=== PATIENT | female | born 1980 | race Caucasian/White ===

== ENCOUNTER 2018-08-05 00:38 | Emergency (ER) | payer OTHER, SELFPAY ==
[2018-08-05 00:45] VITALS: BP 128/67; PULSE 94; RESP 18; TEMP 36.9; O2SAT 95; BMI 55.3
[2018-08-05 01:04] LABS: Bacteria Urine None Seen; RBC Urine None Seen (0-5/HPF); WBC Urine None Seen (0-5/HPF)
[2018-08-05 01:06] LABS: Appearance Urine UA CLEAR; Bilirubin Urine UA NEGATIVE (NEGATIVE); Color Urine UA YELLOW; Glucose Urine UA NEGATIVE (Negative); Ketones Urine UA NEGATIVE (NEGATIVE); Leukocyte Esterase Urine UA NEGATIVE (NEGATIVE); Nitrite Urine UA NEGATIVE (Negative); Occult Blood Urine UA NEGATIVE (Negative); Protein Urine UA NEGATIVE (Negative); Specific Gravity Urine UA 1.025 (1.000-1.035); Urobilinogen Urine UA 0.2 E.U./dL (0.2)
--- NOTE | 2018-08-05 01:06 | ED.FEMALEGU ---
HPI - Female Genitourinary General Chief complaint: Urogenital-Female Stated complaint: hematuria/low back pain Time Seen by Provider: 08/05/18 01:00 Source: patient Mode of arrival: ambulatory Limitations: no limitations History of Present Illness HPI Narrative: Patient is a 38-year-old female here for evaluation of 1 episode of blood in her urine earlier this evening. She also had episode of vomiting. Today she finished a course Levaquin for a urinary tract infection that she states wants to her kidneys. No fevers. Never had any blood in her urine in the past. He is having some back pain. Has never had a kidney stone before. No diarrhea. Related Data Previous Rx's Medication Instructions Recorded phenazopyridine [Pyridium] 100 mg PO TID PRN 2 Days #6 tab 08/05/18 Allergies Allergy/AdvReac Type Severity Reaction Status Date / Time bacitracin Allergy Intermediate INFLAMES Unverified 06/16/17 12:37 [From NEOSPORIN WOUND ([id number])] neomycin Allergy Intermediate INFLAMES Unverified 06/16/17 12:37 [From NEOSPORIN WOUND ([id number])] polymyxin B Allergy Intermediate INFLAMES Unverified 06/16/17 12:37 [From NEOSPORIN WOUND ([id number])] latex [LATEX] Allergy Mild RASH Unverified 06/16/17 12:37 TOOTHPASTE Allergy Severe TONGUE, Uncoded 06/16/17 12:37 GUMS SWELLING, BLISTERS Review of Systems Constitutional Denies fever(s) Cardiovascular Denies chest pain and Denies dyspnea Respiratory Denies dyspnea Gastrointestinal Gastrointestinal: Denies abdominal pain, Denies change in stool character, Reports nausea and Reports vomiting Genitourinary Denies dysuria and Denies vaginal discharge Comments: Hematuria Musculoskeletal Reports back pain Integumentary/Breasts Denies rash Neurologic Denies behavioral changes Psychiatric Denies behavioral changes Hematologic/Lymphatic Denies easy bleeding and Denies easy bruising [facility] Medical History Pyelonephritis (Acute) Social History marital status: lives independently: Yes Social History marital status: lives independently: Yes Exam Initial Vital Signs Initial Vital Signs: Vital Signs Temperature 98.4 F 08/05/18 00:45 Pulse Rate 94 H 08/05/18 00:45 Respiratory Rate 18 08/05/18 00:45 Blood Pressure 128/67 08/05/18 00:45 Pulse Oximetry 95 08/05/18 00:45 Const General: cooperative, comfortable, well developed, well groomed and No acute distress Orientation: alert and awake HENMT Head: normal to inspection and normocephalic Resp Effort & Inspection: normal respiratory effort Auscultation: clear to auscultation bilaterally Cardio Rate: regular rate Rhythm: regular rhythm GI Inspection: non-distended Palpation: soft, No firm and No tender Back/Spine/Pelvis Back: CVA tenderness Skin Lesions: no lesions Rashes: no rashes Neuro General: alert and awake Cognition: normal cognition Speech: speech normal Extrem General: normal to inspection and capillary refill normal Course Orders Ordered: ED Orders 08/05/18 00:50 Urinalysis and Microscopic Stat Vital Signs - 8 hr 08/05/18 00:45 Temperature 98.4 F Pulse Rate 94 H Respiratory Rate 18 Blood Pressure 128/67 Pulse Oximetry 95 MDM - Female Genitourinary Lab Data Attestation: I reviewed the patient's lab results. Lab Results 08/05/18 Range/Units 00:50 Urine Color Yellow Urine Appearance Clear Urine pH 5.0 (4.5-8.0) Ur Specific [place] 1.025 (1.000-1.035) Urine Protein Negative (Negative) Urine Glucose (UA) Negative (Negative) g/dL Urine Ketones Negative (NEGATIVE) Urine Occult Blood Negative (Negative) Urine Nitrate Negative (Negative) Urine Bilirubin Negative (NEGATIVE) Urine Urobilinogen 0.2 (0.2) E.U./dL Ur Leukocyte Esterase Negative (NEGATIVE) Urine RBC None seen (0-5/HPF) Urine WBC None seen (0-5/HPF) Ur Squamous Epith Cells 0-1 /hpf (0-5/HPF) Urine Bacteria None seen (None) Ur Culture Indicated? Cult not indicated Micro UA Comment Microscopic normal MDM Narrative Medical decision making narrative: Patient's urine is clean today. She states that the blood did not come from the vagina it was in her urine. She has urinated once since the episode of hematuria and coming here to the emergency department. She is afebrile. I have low suspicion for continued UTI and pyelonephritis. She has never had a kidney stone before. Her physical exam is not consistent with kidney stones. Will hold on CT scan for now. Discussed all this with the patient. She states that peridium his helped her symptoms in the past will give her prescription for this. She was given return precautions. She expressed understanding and agreement with plan. Discharge Plan Departure Patient Disposition: Home Clinical Impression: Hematuria Qualifiers: Hematuria type: unspecified type Qualified Code(s): R31.9 - Hematuria, unspecified Instructions: Blood in Urine Activity Restrictions/Additional Instructions: Continue to increase your fluid intake. If the bleeding continues and you do need to talk with your primary doctor about referral to see Urology. There is no signs of continued infection today. Return to the emergency department for any new or worsening symptoms Prescriptions: New phenazopyridine [Pyridium] 100 mg tablet 100 mg PO TID PRN (Reason: pain) 2 Days Qty: 6 RF: 0
[2018-08-05 01:15] LABS: Culture Indicated Urine Cult Not Indicated; Squamous Epithelial Cell Urine 0-1 /HPF (0-5/HPF); Urine Comments Microscopic Normal
[2018-08-05 01:59] VITALS: BP 128/109; PULSE 86; RESP 20; TEMP 36.7; O2SAT 96
== END 2018-08-05 02:00 | disposition home or self-care (01) ==
PROVIDERS: Emergency Provider Emergency Medicine
DX: R31.9 Hematuria, unspecified (principal)
CPT/HCPCS: 81001; 99282; 99283

== ENCOUNTER 2019-01-06 11:15 | Emergency (ER) | payer OTHER, SELFPAY ==
[2019-01-06 11:15] VITALS: BP 123/93; PULSE 80; RESP 16; TEMP 37.2; O2SAT 98
--- NOTE | 2019-01-06 13:58 | ED.FEMALEGU ---
HPI - Female Genitourinary <CARMELO Torrez - Last Filed: 01/07/19 02:35> General Chief complaint: Urogenital-Female Stated complaint: thinks she had a kidney infection Time Seen by Provider: 01/06/19 12:08 Source: patient and family Mode of arrival: Family Vehicle Limitations: no limitations History of Present Illness HPI Narrative: This is a 39 year female, former smoker, who presents to ED with her spouse with chief complain of mild abdominal cramping with bilateral flank pain with nausea and bag symptoms of tired and feels like when she had bacterial vaginosis or yeast infection in the past. Patient has history of diabetes and states has frequent BV or yeast infection. Patient denies fever, vomiting. She reports chills and sweats. She reports white thin vaginal discharge and denies vaginal itching, bleeding or spotting. Patient denies any concerns for STIs. LMP was12/19/18. Related Data Home Medications Medication Instructions Recorded Confirmed calcium carb-D3-mag ox-zinc ox 1 tab PO DAILY 01/06/19 01/06/19 colchicine [Colcrys] 0.6 mg PO DAILY 01/06/19 01/06/19 duloxetine 60 mg PO DAILY 01/06/19 01/06/19 hydrochlorothiazide 12.5 mg PO QPM 01/06/19 01/06/19 hydroxyzine HCl 25 mg PO QPM 01/06/19 01/06/19 lisinopril 10 mg PO QPM 01/06/19 01/06/19 metformin 500 mg PO QPM 01/06/19 01/06/19 multivitamin 1 tab PO DAILY 01/06/19 01/06/19 oxycodone-acetaminophen 1 tab PO Q6H PRN 01/06/19 01/06/19 pregabalin [Lyrica] 75 mg PO TID 01/06/19 01/06/19 ropinirole 1 mg PO QID 01/06/19 01/06/19 tapentadol [Nucynta ER] 50 mg PO BID 01/06/19 01/06/19 tizanidine 4 mg PO QID 01/06/19 01/06/19 Previous Rx's Medication Instructions Recorded ondansetron 4 mg PO Q6-8H PRN #7 tab 11/01/19 Allergies Allergy/AdvReac Type Severity Reaction Status Date / Time bacitracin Allergy Intermediate INFLAMES Unverified 06/16/17 12:37 [From NEOSPORIN WOUND ([id number])] neomycin Allergy Intermediate INFLAMES Unverified 06/16/17 12:37 [From NEOSPORIN WOUND ([id number])] polymyxin B Allergy Intermediate INFLAMES Unverified 06/16/17 12:37 [From NEOSPORIN WOUND ([id number])] latex [LATEX] Allergy Mild RASH Unverified 06/16/17 12:37 TOOTHPASTE Allergy Severe TONGUE, Uncoded 06/16/17 12:37 GUMS SWELLING, BLISTERS Review of Systems <CARMELO Torrez - Last Filed: 01/07/19 02:35> Review of Systems Narrative: General: See HPI HEENT: Denies sinus pain, ear pain, sore throat, difficulty swallowing, dizziness. Respiratory: Denies dyspnea, cough, wheezing, hemoptysis, sputum. Cardiovascular: Denies chest pain, palpitations, orthopnea, edema. Gastrointestinal: See HPI : See HPI Musculoskeletal: Denies weakness, joint pain or bony pain. Skin: Denies rash, skin lesions, or other. Neurologic: Denies weakness, headache, numbness, change in speech, confusion, seizures, incoordination. Psychiatric: No concerning psychosocial issues. 12-point review of systems is negative except for those stated above. Patient History <CARMELO Torrez - Last Filed: 01/07/19 02:35> Medical History Pyelonephritis (Acute) Smoking Status: Former smoker alcohol intake frequency: 0-2 drinks per day Substance Use Type: does not use Exam <CARMELO Torrez - Last Filed: 01/07/19 02:35> Narrative Exam Narrative: General appearance: well developed, well nourished, in no acute distress. Head: normocephalic, atraumatic, no scalp lesions, non-tender. Eye: pupil equal, round. EOMI. Nose: nares patent. Oral: mucosa moist. Neck/Thyroid: neck supple, full range of motion, no visible masses. Skin: no suspicious rashes, lesions over visible areas. Warm and dry. Heart: no clubbing, no cyanosis, no edema. Lungs: Breathing even and unlabored. No stridor. No accessory muscles used. Chest: normal shape and expansion. Abdomen: obese, non-distended, soft, nondistended, very mild tenderness to suprapubic region, no rebound tenderness. Neurologic: alert and oriented. Cognitive exam, [employer] and PNS grossly intact on informal exam. Psych: good eye contact, normal affect. Initial Vital Signs Initial Vital Signs: Vital Signs Temperature 98.9 F 01/06/19 11:15 Pulse Rate 80 01/06/19 11:15 Respiratory Rate 16 01/06/19 11:15 Blood Pressure 123/93 H 01/06/19 11:15 Pulse Oximetry 98 01/06/19 11:15 General: No CVA tenderness External Female Exam: external appearance normal, no tenderness externally, no lesions and No urethral discharge Speculum Exam - Vagina: normal appearance of the vagina, normal vaginal discharge, not erythematous, No vaginal bleeding and nontender Speculum Exam - Cervix: normal appearance of the cervix, normal vervical discharge, no lesions and nontender Bimanual Exam- Vagina & Uterus: normal bimanual exam, No cervical tenderness, uterus non-tender and no cervical motion tenderness Bimanual Exam- Adnexa, other: adnexal mass and adnexae non-tender OB/External & Speculum: No vaginal bleeding <Akua Fleming DO - Last Filed: 01/07/19 07:09> Initial Vital Signs Initial Vital Signs: Vital Signs Temperature 98.9 F 01/06/19 11:15 Pulse Rate 80 01/06/19 11:15 Respiratory Rate 16 01/06/19 11:15 Blood Pressure 123/93 H 01/06/19 11:15 Pulse Oximetry 98 01/06/19 11:15 Scores <CARMELO Torrez - Last Filed: 01/07/19 02:35> GCS Saffell coma scale eye opening: Spontaneous Shy coma scale verbal response: Orientated Saffell coma scale motor response: Obey commands Shy coma scale total score: 15 Course <CARMELO Torrez - Last Filed: 01/07/19 02:35> Orders Ordered: ED Orders 01/06/19 12:50 Genital Culture Stat Wet Prep Tric BV Diana Stat Vital Signs Vital signs: Vital Signs - 8 hr 01/06/19 11:15 Temperature 98.9 F Pulse Rate 80 Respiratory Rate 16 Blood Pressure 123/93 H Pulse Oximetry 98 <Akua Fleming DO - Last Filed: 01/07/19 07:09> Orders Ordered: ED Orders 01/06/19 12:50 Genital Culture Stat Wet Prep Tric BV Diana Stat Vital Signs Vital signs: Vital Signs - 8 hr 01/06/19 11:15 Temperature 98.9 F Pulse Rate 80 Respiratory Rate 16 Blood Pressure 123/93 H Pulse Oximetry 98 MDM - Female Genitourinary <DORIAN TorrezP - Last Filed: 01/07/19 02:35> Differential Diagnosis Differential diagnosis: Likely urinary tract infection, bacterial vaginosis, trichomoniasis, cervicitis, ovarian cyst and other (Yeast infection) Medical Records Attestation: I reviewed the patient's medical records. Lab Data Attestation: I reviewed the patient's lab results. Labs: Point of Care Testing Test Results Negative Urine Dip Bedside Urine Glucose Negative Bedside Urine Bilirubin - Negative Bedside Urine Ketone - Negative Urine Specific [place] 1.015 Bedside Urine Occult Blood - Negative Bedside Urine pH 6.0 Bedside Urine Protein - Negative Bedside Urine Urobilinogen - Negative Bedside Urine Nitrite - Negative Bedside Urine Leukocytes - Negative Esterase MDM Narrative Medical decision making narrative: This is 39 year old female with back chief complain of low abdominal pain with back pain. Patient is concerned if she had another episode of vaginal infection which she had frequently in the past and she contributes to history of diabetes. The urine test was negative for urine leuko esterase and nitrite. Urine HCG was negative. Pelvic exam was negative for CMT, with normal vaginal discharge. There was no adnexal mass or enlarged uterus palpated. Abdominal physical exam was benign. Wet prep test was normal and genital culture is pending at this time. Findings were discussed with patient and spouse at the bedside. Patient advised to take [id number] Tylenol and or Motrin as needed for discomfort. Patient has a follow-up appointment this coming week with her PCP at [facility] and advised to keep that appointment. Return precautions were discussed with the patient and patient verbalized understanding and agrees with treatment plan. <Akua Fleming DO - Last Filed: 01/07/19 07:09> Lab Data Labs: Point of Care Testing Test Results Negative Urine Dip Bedside Urine Glucose Negative Bedside Urine Bilirubin - Negative Bedside Urine Ketone - Negative Urine Specific [place] 1.015 Bedside Urine Occult Blood - Negative Bedside Urine pH 6.0 Bedside Urine Protein - Negative Bedside Urine Urobilinogen - Negative Bedside Urine Nitrite - Negative Bedside Urine Leukocytes - Negative Esterase Discharge Plan Departure Patient Disposition: Home Clinical Impression: Lower abdominal pain Discharge Date/Time: 01/06/19 15:03 Instructions: DI for Abdominal Pain-Adult Activity Restrictions/Additional Instructions: You have been diagnosed with [low abdominal pain. The urine test does not indicate infection. Vaginal cultures are negative for infections for BV, yeast and etc. ]. What to do: *Take your medications as directed. Please take [id number] Tylenol and or Motrin as needed for discomfort. Zofran has been ordered for nausea as needed if you have recurring nausea. The vital signs showing no elevated heart rates or temperature at this time. *Follow up with your primary care provider in 2-3 days, call for an appointment. Let them know you were seen in the ED and that we asked you to be seen in follow up. *Return to ED if you have any new, worsening, or concerning symptoms, such as [fever, worsening nausea or vomiting, blood in her emesis or stool, chest pain, breathing difficulty, or any acute concerns]. Prescriptions: New ondansetron 4 mg tablet,disintegrating 4 mg PO Q6-8H PRN (Reason: nausea and vomiting) Qty: 7 RF: 0 No Action ropinirole 1 mg tablet 1 mg PO QID RF: 0 tizanidine 4 mg tablet 4 mg PO QID RF: 0 lisinopril 10 mg tablet 10 mg PO QPM RF: 0 hydroxyzine HCl 25 mg tablet 25 mg PO QPM RF: 0 oxycodone-acetaminophen 7.5-325 mg tablet 1 tab PO Q6H PRN (Reason: pain) RF: 0 colchicine [Colcrys] 0.6 mg tablet 0.6 mg PO DAILY RF: 0 metformin 500 mg tablet extended release 24 hr 500 mg PO QPM RF: 0 duloxetine 60 mg capsule,delayed release(DR/EC) 60 mg PO DAILY RF: 0 pregabalin [Lyrica] 75 mg capsule 75 mg PO TID RF: 0 hydrochlorothiazide 12.5 mg tablet 12.5 mg PO QPM RF: 0 Nucynta ER 50 mg tablet extended release 12 hr 50 mg PO BID RF: 0 multivitamin Tablet 1 tab PO DAILY RF: 0 calcium carb-D3-mag ox-zinc ox 333 mg-133 unit -133 mg-5 mg Tablet 1 tab PO DAILY RF: 0 Referrals: [facility] [Outside]
[2019-01-06 14:30] VITALS: BP 119/76; PULSE 73; RESP 18; O2SAT 99
== END 2019-01-06 15:03 | disposition home or self-care (01) ==
PROVIDERS: Emergency Provider Nurse Practitioner Family
DX: R10.30 Lower abdominal pain, unspecified (principal); E11.9 Type 2 diabetes mellitus without complications; I10 Essential (primary) hypertension
CPT/HCPCS: 81003; 81025; 87070; 87077; 87147; 87205; 87210; 99282

== ENCOUNTER 2019-02-15 06:58 | Emergency (ER) | payer OTHER, SELFPAY ==
[2019-02-15 07:00] VITALS: BP 145/93; PULSE 92; RESP 22; TEMP 36.7; O2SAT 97
[2019-02-15 07:30] VITALS: BP 103/71; PULSE 88; RESP 14; O2SAT 93
[2019-02-15 07:42] LABS: Add Manual Diff / Slide Review NO; Basophils Absolute Auto 0 /uL (0-100); Basophils Percent Auto 0.6 % (0-2); Eosinophils Absolute Auto 200 /uL (0-450); Eosinophils Percent Auto 2.2 % (2-4); Hematocrit 40.6 % (36-46); Hemoglobin 13.9 g/dL (12.0-16.0); Lymphocytes Absolute Auto 2700 /uL (1100-4500); Lymphocytes Percent Auto 36.1 % (25-40); Mean Corpuscular HGB Conc 34.1 % (30-36); Mean Corpuscular Hemoglobin 31.2 PG (26-34); Mean Corpuscular Volume 91.4 fL (80-100); Monocytes Absolute Auto 500 /uL (0-900); Monocytes Percent Auto 6.6 % (3-14); Neutrophils Absolute Auto 4100 /uL (1500-7000); Neutrophils Percent Auto 54.5 % (50-75); Platelet Count 319 X10^3/uL (150-400); Red Blood Cell Count 4.44 X10^6/uL (4.0-5.2); Red Cell Distribution Width 13.5 % (11.6-14.8); White Blood Cell Count 7.4 X10^3/uL (4.5-11.0)
[2019-02-15 07:43] LABS: Blood Urea Nitrogen 14 mg/dL (7-17); Calcium 9.5 mg/dL (8.4-10.2); Carbon Dioxide 27 mmol/L (22-32); Chloride 97 mmol/L (98-107); Estimated Glomerular Filt Rate > 60.0 mL/min (>60); Glucose 155 mg/dL (70-100); HEMOLYSIS 15 (0-50); Potassium 3.2 mmol/L (3.4-5.1); Sodium 137 mmol/L (137-145)
--- NOTE | 2019-02-15 07:51 | PC.NURSE ---
Unable to obtain IV at this time. Labs sent. Dr. Fleming aware.
[2019-02-15 07:55] LABS: Troponin I < 0.012 ng/mL (0.01-0.034)
--- NOTE | 2019-02-15 08:42 | ED_ITS ---
HPI - Arrhythmia/Palpitations General Chief Complaint: Arrhythmia/Palpitations Stated Complaint: heart stops/races passed out 2 days ago Time Seen by Provider: 02/15/19 07:02 Source: patient Mode of arrival: Ambulatory Limitations: no limitations History of Present Illness HPI narrative: This is a 39-year-old female comes to the emergency department with complaint of palpitations and feeling like her heart sometimes going and then skipping a few beats. Patient states she has really been noticing over the last 3 or 4 days although she has noticed in the past. She states nothing seems to exacerbate it or make it better. Last night she was up all night painting. She states that she has had 3 episodes where she passed out 1 was catch, was getting ready in the morning and 1 was in her bathroom. Patient states that they were very short episodes. She did hit her chest on a table for 1 and has a bruise on her right breast. Patient states that she takes multiple medications for diabetes, fibromyalgia, peripheral neuropathy, depression and arthritis. Does appear she takes medications for lisinopril and she has been told that her potassium is low and she takes supplementation. Patient been told to get a Holter in the past but has not done it. She denies any chest pain with these episodes, she denies any shortness of breath. She multiple nauseated. She denies any vomiting. She denies any frequency, dysuria urgency. No issues with bowel movements. No swelling in her lower extremities. she has had a tendon repair in her hand. She does not smoke tobacco, rare alcohol occasional CBD. Related Data Home Medications Medication Instructions Recorded Confirmed calcium carb-D3-mag ox-zinc ox 1 tab PO DAILY 01/06/19 01/06/19 colchicine [Colcrys] 0.6 mg PO DAILY 01/06/19 01/06/19 duloxetine 60 mg PO DAILY 01/06/19 01/06/19 hydrochlorothiazide 12.5 mg PO QPM 01/06/19 01/06/19 hydroxyzine HCl 25 mg PO QPM 01/06/19 01/06/19 lisinopril 10 mg PO QPM 01/06/19 01/06/19 metformin 500 mg PO QPM 01/06/19 01/06/19 multivitamin 1 tab PO DAILY 01/06/19 01/06/19 oxycodone-acetaminophen 1 tab PO Q6H PRN 01/06/19 01/06/19 pregabalin [Lyrica] 75 mg PO TID 01/06/19 01/06/19 ropinirole 1 mg PO QID 01/06/19 01/06/19 tapentadol [Nucynta ER] 50 mg PO BID 01/06/19 01/06/19 tizanidine 4 mg PO QID 01/06/19 01/06/19 Previous Rx's Medication Instructions Recorded ondansetron 4 mg PO Q6-8H PRN #7 tab 01/06/19 Allergies Allergy/AdvReac Type Severity Reaction Status Date / Time bacitracin Allergy Intermediate INFLAMES Unverified 02/15/19 07:14 [From NEOSPORIN WOUND ([id number])] neomycin Allergy Intermediate INFLAMES Unverified 02/15/19 07:14 [From NEOSPORIN WOUND ([id number])] polymyxin B Allergy Intermediate INFLAMES Unverified 02/15/19 07:14 [From NEOSPORIN WOUND ([id number])] latex [LATEX] Allergy Mild RASH Unverified 02/15/19 07:14 Review of Systems Review of Systems ROS Unobtainable: All systems reviewed & are unremarkable except as noted in HPI and below Patient History Medical History Pyelonephritis (Acute) Social History marital status: lives independently: Yes Smoking Status: Former smoker Smoking Status: Former smoker alcohol intake frequency: 0-2 drinks per day Substance Use Type: does not use Exam Narrative Exam Narrative: GENERAL: Alert and oriented x three, obese female in no acute distress. HEENT: Head normocephalic, atraumatic, EOMI, pupils reactive, face symmetric, moist mucous membranes NECK: Supple, full range of motion CARDIOVASCULAR: Regular rate and rhythm without murmurs, rubs or gallops. Jamee ent has a 3 cm area of ecchymosis with no hematoma palpated of the right breast at the 3 o'clock position. RESPIRATORY: Breath sounds equal bilaterally, no wheezes rales or rhonchi. ABDOMEN: Soft, nontender. Normoactive bowel sounds all 4 quadrants. No guarding or rebound, rigidity, no mass : No CVA tenderness EXTREMITIES: Normal range of motion, no clubbing or edema. Neurovascularly intact NEUROLOGICAL: Cranial nerves II through XII grossly intact. Moving all extremities SKIN: Warm, dry, no petechiae, no rashes or lesions. Initial Vital Signs Initial Vital Signs: Vital Signs Temperature 98.1 F 02/15/19 07:00 Pulse Rate 92 H 02/15/19 07:00 Respiratory Rate 22 02/15/19 07:00 Blood Pressure 145/93 H 02/15/19 07:00 Pulse Oximetry 97 02/15/19 07:00 Scores PERC Score Age greater than or equal to 50 years: No Heart rate greater than or equal to 100 bpm: No Room Air O2 Sat less than 95%: No Unilateral leg swelling: No Recent trauma or surgery: No Hemoptysis: No Prior PE or DVT: No Hormone Use: No Total PERC Score: 0 Course Orders Ordered: Discontinued Medications Potassium Chloride (Potassium Chloride) 40 meq PO NOW ONE Stop: 02/15/19 08:51 Last Admin: 02/15/19 09:15 Dose: 40 meq Documented by: VICTOR M Vital Signs Vital signs: Vital Signs - 8 hr 02/15/19 07:00 02/15/19 07:30 Temperature 98.1 F Pulse Rate 92 H 88 Respiratory Rate 22 14 Blood Pressure 145/93 H Blood Pressure [Left Arm] 103/71 Pulse Oximetry 97 93 MDM - Arrhythmia/Palpitations Lab Data Attestation: I reviewed the patient's lab results. Result diagrams: 02/15/19 07:25 02/15/19 07:25 Labs: Lab Results 02/15/19 02/15/19 02/15/19 Range/Units 07:25 07:25 07:25 WBC 7.4 (4.5-11.0) X10^3/uL RBC 4.44 (4.0-5.2) X10^6/uL Hgb 13.9 (12.0-16.0) g/dL Hct 40.6 (36-46) % MCV 91.4 (80-100) fL MCH 31.2 (26-34) PG MCHC 34.1 (30-36) % RDW 13.5 (11.6-14.8) % Plt Count 319 (150-400) X10^3/uL Neut % (Auto) 54.5 (50-75) % Lymph % (Auto) 36.1 (25-40) % Childress % (Auto) 6.6 (3-14) % Eos % (Auto) 2.2 (2-4) % Baso % (Auto) 0.6 (0-2) % Neut # (Auto) 4100 (9698-2313) /uL Lymph # (Auto) 2700 (8307-5885) /uL Childress # (Auto) 500 (0-900) /uL Eos # (Auto) 200 (0-450) /uL Baso # (Auto) 0 (0-100) /uL Sodium 137 (137-145) mmol/L Potassium 3.2 L (3.4-5.1) mmol/L Chloride 97 L (98-107) mmol/L Carbon Dioxide 27 (22-32) mmol/L BUN 14 (7-17) mg/dL Creatinine 0.70 (0.52-1.04) mg/dL Estimated GFR > 60.0 (>60) mL/min BUN/Creatinine Ratio 20.0 (6-22) Glucose 155 H (70-100) mg/dL Calcium 9.5 (8.4-10.2) mg/dL Troponin I < 0.012 (0.01-0.034) ng/mL TSH 1.54 (0.47-4.68) uIU/mL Point of Care Testing Glucose POC 161 Imaging Data Chest x-ray: My impression: nap Radiologist's impression: Maritza Phillips 39 F [address] [address] XRay Report Signed Patient: Maritza Phillips [facility]#: [id number] : 1980Acct:[id number] Age/Sex: 39 / FDate of Service: 02/15/19 Loc: ED Accession Number: [id number] Procedure: XR chest 1V Ordering Provider: Akua Fleming D.O. PROCEDURE: XR CHEST 1V INDICATIONS: palpitations, passed out 2 days ago TECHNIQUE: One view of the chest was acquired. COMPARISON: None. FINDINGS: Surgical changes and devices: None. Lungs and pleura: Lungs are clear. No pleural effusions or pneumothorax. Mediastinum: Mediastinal contours appear normal. Heart size is normal. Bones and chest wall: No suspicious bony lesions. Overlying soft tissues appear unremarkable. IMPRESSION: Negative chest. No acute cardiopulmonary process is evident. Dictated by: Tim Pereyra M.D. on 02/15/2019 at 8:12 Approved by: Tim Pereyra M.D. on 02/15/2019 at 8:13 ECG Data Attestation: I personally reviewed and interpreted this ECG as follows: Prior ECG tracings: not available for review Interpretation: Sinus rhythm rate 84 SC 194 QRS of 95 and QTC of 431. Q-wave in [address] elevation or depression. No priors available for review. MDM Narrative Medical decision making narrative: Discussed with patient complained palpitations she denies any symptoms here, she has had normal sinus rhythm with labs that show a mild hypokalemia. This could potentially cause some palpitation type symptoms although she has had what she describes 3 episodes of syncope over the last year. Patient and I discussed that she would benefit from a Holter monitor. She states she is prediabetic, she does take hypertensive medications likely for her diabetes and renal protection but this does cause hypokalemia. She does take supplementation. She will call and set up follow-up with her primary care. Discharge Plan Departure Patient Disposition: Home Clinical Impression: Syncope, Palpitations Discharge Date/Time: 02/15/19 09:39 Instructions: DI for Palpitations Activity Restrictions/Additional Instructions: Follow-up for primary care for recheck in the next 3-5 days. Discussed with your physician about getting a Holter monitor or ZIO patch You may continue home medications as prescribed. Return to the emergency department for fevers greater 100.4 F, recurrent symptoms, passing out, new chest pain, shortness of breath, persistent vomiting, abdominal pain, black or bloody stools, swelling in your extremities or other new or concerning symptoms. Prescriptions: No Action ropinirole 1 mg tablet 1 mg PO QID RF: 0 tizanidine 4 mg tablet 4 mg PO QID RF: 0 lisinopril 10 mg tablet 10 mg PO QPM RF: 0 hydroxyzine HCl 25 mg tablet 25 mg PO QPM RF: 0 oxycodone-acetaminophen 7.5-325 mg tablet 1 tab PO Q6H PRN (Reason: pain) RF: 0 colchicine [Colcrys] 0.6 mg tablet 0.6 mg PO DAILY RF: 0 metformin 500 mg tablet extended release 24 hr 500 mg PO QPM RF: 0 duloxetine 60 mg capsule,delayed release(DR/EC) 60 mg PO DAILY RF: 0 pregabalin [Lyrica] 75 mg capsule 75 mg PO TID RF: 0 hydrochlorothiazide 12.5 mg tablet 12.5 mg PO QPM RF: 0 Nucynta ER 50 mg tablet extended release 12 hr 50 mg PO BID RF: 0 multivitamin Tablet 1 tab PO DAILY RF: 0 calcium carb-D3-mag ox-zinc ox 333 mg-133 unit -133 mg-5 mg Tablet 1 tab PO DAILY RF: 0 ondansetron 4 mg tablet,disintegrating 4 mg PO Q6-8H PRN (Reason: nausea and vomiting) Qty: 7 RF: 0
[2019-02-15 08:43] LABS: Thyroid Stimulating Hormone 1.54 uIU/mL (0.47-4.68)
[2019-02-15] MEDS: POTASSIUM CHLORIDE 20 MEQ/15 ML UDC 40 MEQ PO (09:15)
[2019-02-15 09:31] VITALS: BP 121/79; PULSE 71; RESP 19; O2SAT 100
== END 2019-02-15 09:39 | disposition home or self-care (01) ==
PROVIDERS: Emergency Medicine; Emergency Provider Emergency Medicine
DX: R55 Syncope and collapse (principal); R00.2 Palpitations; E87.6 Hypokalemia
CPT/HCPCS: 36415; 71045; 80048; 82962; 84443; 84484; 85025; 93005; 93010; 99282; 99285

== ENCOUNTER 2019-03-31 12:52 | Emergency (ER) | payer OTHER, SELFPAY ==
[2019-03-31 12:57] VITALS: BP 136/93; PULSE 108; RESP 18; TEMP 36.3; O2SAT 97; BMI 54.0
--- NOTE | 2019-03-31 13:11 | DI.RAD.S_ITS ---
PROCEDURE: XR CHEST 2V INDICATIONS: shortness of breath TECHNIQUE: 2 views of the chest were acquired. COMPARISON: [facility], , XR CHEST 1V, 02/15/2019, 8:48. FINDINGS: Surgical changes and devices: None. Lungs and pleura: Lungs are clear. No pleural effusions or pneumothorax. Mediastinum: Mediastinal contours are normal. Heart size is normal. Bones and chest wall: No suspicious bony abnormalities. Age-appropriate bony degenerative changes are seen. Soft tissues appear unremarkable. IMPRESSION: No acute cardiopulmonary process is seen. Dictated by: Costa Lopez M.D. on 03/31/2019 at 13:15 Approved by: Costa Lopez M.D. on 03/31/2019 at 13:15
--- NOTE | 2019-03-31 13:40 | PC.NURSE ---
pt reports, seen her pcp yesterday, dx with pitting edema lower legs, today, states, its worst, its not pitting and my legs are more squeezy, I smell acidic when im sweaty, and im not voiding normally, but able to void today. wt 366 pounds, noted a wt lost 30# in 3 months. left foot with gout. 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 +chest preassure intermittent. denies nausea,vomiting,fever,coughing,diarrhea.
[2019-03-31 13:44] VITALS: BP 142/83; PULSE 90; RESP 20; O2SAT 100
[2019-03-31 13:52] LABS: Add Manual Diff / Slide Review NO; Basophils Absolute Auto 0 /uL (0-100); Basophils Percent Auto 0.3 % (0-2); Eosinophils Absolute Auto 0 /uL (0-450); Eosinophils Percent Auto 0.6 % (2-4); Hematocrit 40.5 % (36-46); Hemoglobin 14.2 g/dL (12.0-16.0); Lymphocytes Absolute Auto 1800 /uL (1100-4500); Lymphocytes Percent Auto 22.3 % (25-40); Mean Corpuscular Hemoglobin 31.8 PG (26-34); Monocytes Absolute Auto 500 /uL (0-900); Monocytes Percent Auto 6.3 % (3-14); Neutrophils Absolute Auto 5700 /uL (1500-7000); Neutrophils Percent Auto 70.5 % (50-75); Platelet Count 330 X10^3/uL (150-400); Red Blood Cell Count 4.45 X10^6/uL (4.0-5.2); Red Cell Distribution Width 13.2 % (11.6-14.8); White Blood Cell Count 8.1 X10^3/uL (4.5-11.0)
[2019-03-31 14:16] LABS: Lactate (Lactic Acid) 1.6 mmol/L (0.7-2.1)
[2019-03-31 14:17] LABS: Alanine Aminotransferase 44 IU/L (<35); Albumin Globulin Ratio 1.3 (1.0-2.8); Alkaline Phosphatase 56 U/L (38-126); Aspartate Aminotransferase 43 IU/L (14-36); BUN Creatinine Ratio 15.7 (6-22); Bilirubin Total 0.5 mg/dL (0.2-1.3); Blood Urea Nitrogen 11 mg/dL (7-17); Calcium 10.3 mg/dL (8.4-10.2); Carbon Dioxide 29 mmol/L (22-32); Chloride 98 mmol/L (98-107); Estimated Glomerular Filt Rate > 60.0 mL/min (>60); Glucose 131 mg/dL (70-100); HEMOLYSIS < 15 (0-50); Potassium 3.6 mmol/L (3.4-5.1); Sodium 137 mmol/L (137-145)
--- NOTE | 2019-03-31 14:23 | ED_ITS ---
HPI - Extremity Problem <CARMELO Torrez - Last Filed: 03/31/19 19:08> General Chief complaint: Extremity Problem,Nontraumatic Stated complaint: legs swelling Time Seen by Provider: 03/31/19 13:19 Source: patient Mode of arrival: Ambulatory Limitations: no limitations History of Present Illness HPI Narrative: This is a 39-year-old female, former smoker, who presents to ED with spouse with chief complain of bilateral leg swelling and discomfort from pitting edema to now squeeshy feeling and noticed decreased urine output since this morning. Patient states she has been hydrating well with water at least 4 large cups but has only voided once with not concentrated appearance at 11 a.m. this morning. She also states her sweats smells alike acidic. She reports intermittent chest pressure and feels like passing out for last a couple of weeks. She states has history of fibromyalgia, hypertensive, prediabetic, PCOS, anxiety, chronic back pain and takes multiple medications for these. Patient reports she had taken half tab of Percocet prior coming into ED and her pain has decreased to 3/10 from 09/14. Patient denies short of breath, fever, chills, coughing, nausea or vomiting, diarrhea. Patient does have chronic constipation which is normal for her due to her pain medications. Patient denies blood in her stool or urine, chronic kidney disease. Patient states she had a sepsis from kidney infection and was on 14 day course of oral antibiotic medication and treated as outpatient knee. Patient also reports unintentional weight loss of 30 lb during last 3-4 months. [place] has a scheduled cardiology appointment with Dr. Be for recent syncopal episode, chest pressure and dizziness. Related Data Home Medications Medication Instructions Recorded Confirmed calcium carb-D3-mag ox-zinc ox 1 tab PO DAILY 01/06/19 03/31/19 colchicine [Colcrys] 0.6 mg PO DAILY 01/06/19 03/31/19 duloxetine 60 mg PO DAILY 01/06/19 03/31/19 hydrochlorothiazide 12.5 mg PO QPM 01/06/19 03/31/19 hydroxyzine HCl 25 mg PO QPM 01/06/19 03/31/19 lisinopril 10 mg PO QPM 01/06/19 03/31/19 metformin 500 mg PO QPM 01/06/19 03/31/19 multivitamin 1 tab PO DAILY 01/06/19 03/31/19 oxycodone-acetaminophen 1 tab PO Q6H PRN 01/06/19 03/31/19 pregabalin [Lyrica] 75 mg PO TID 01/06/19 03/31/19 ropinirole 1 mg PO TID 01/06/19 03/31/19 tapentadol [Nucynta ER] 50 mg PO BID 01/06/19 03/31/19 tizanidine 4 mg PO QID 01/06/19 03/31/19 loratadine 10 mg PO DAILY 03/31/19 03/31/19 potassium chloride [Klor-Con 10] 10 meq PO BID 03/31/19 03/31/19 Previous Rx's Medication Instructions Recorded ondansetron 4 mg PO Q6-8H PRN #7 tab 01/06/19 cephalexin [Keflex] 500 mg PO BID 7 Days #14 cap 03/31/19 Allergies Allergy/AdvReac Type Severity Reaction Status Date / Time bacitracin Allergy Intermediate INFLAMES Verified 03/31/19 12:57 [From NEOSPORIN WOUND ([id number])] neomycin Allergy Intermediate INFLAMES Verified 03/31/19 12:57 [From NEOSPORIN WOUND ([id number])] polymyxin B Allergy Intermediate INFLAMES Verified 03/31/19 12:57 [From NEOSPORIN WOUND ([id number])] latex [LATEX] Allergy Mild RASH Verified 03/31/19 12:57 Review of Systems <CARMELO Torrez - Last Filed: 03/31/19 19:08> Review of Systems Narrative: General: Denies fever, chills, fatigue, malaise, sweats. HEENT: Denies sinus pain, ear pain, sore throat, difficulty swallowing, dizziness. Respiratory: Denies dyspnea, cough, wheezing, hemoptysis, sputum. Cardiovascular: Denies (+) occasional and intermittent chest pressure, palpitations, orthopnea, (+) edema to bilateral legs. Gastrointestinal: Denies nausea, vomiting, abdominal pain, diarrhea, (+) chronic constipation, melena. : Denies dysuria, frequency, incontinence, hematuria, urinary retention. Musculoskeletal: Denies weakness, joint pain or bony pain. Reports chronic back pain and muscle spasms in abdomen. Skin: Denies rash, skin lesions, or other. Neurologic: Denies weakness, headache, numbness, change in speech, confusion, seizures, incoordination. Psychiatric: No concerning psychosocial issues. 12-point review of systems is negative except for those stated above. Patient History <CARMELO Torrez - Last Filed: 03/31/19 19:08> Medical History Pyelonephritis (Acute) Social History marital status: lives independently: Yes Smoking Status: Former smoker Smoking Status: Former smoker alcohol intake frequency: holidays/special occasions only Substance Use Type: does not use and marijuana Exam <CARMELO Torrez - Last Filed: 03/31/19 19:08> Narrative Exam Narrative: GEN: Alert, oriented x 3, well appearing and nourished, and in no acute distress. Head: Normal cephalic, atraumatic. No scalp or temporal tenderness, palpable mass or rash. EYES: Pupils are equal, round, and reactive to light and accommodation. Extraocular muscles are intact bilaterally. There is no subconjunctival hemorrhage, exudate and sclera non-icteric. ENT: Bilateral auditory canals and tympanic membranes clear. Hearing grossly intact. Nose without bleeding, purulent discharge or deviation. Facial sinuses nontender to palpate. Mucous membrane moist, no mucosal lesion. Throat wi thout erythema, tonsillar hypertrophy or exudate. Uvula in midline, airway patent. Neck: Trachea in midline. No JVD, non-tender without lymphadenopathy. No masses or thyroid megaly. Supple, non-tender and no meningeal signs. CARDIAC: Normal regular rate and rhythm without murmurs, gallops, or rubs. No chest wall tenderness. No peripheral edema, cyanosis or pallor. Capillary refill is less than 2 seconds. RESPIRATORY: Lungs are clear to auscultate bilaterally. No cough, wheezes, rales, or rhonchi. No stridor, respiratory distress, increase work of breathing, or accessary muscle used. ABD: Abdomen soft, nontender and non-distended. No guarding or rebound tenderness to palpate. Bowel sounds are normal in all 4 quadrants. There is no palpable masses or organomegaly. EXT: Full painless ROM of all extremities with no loss of sensation, strength, effusion or edema. SKIN: Warm, dry, normal color for patient. No erythema, lesions or rash over visible areas. BACK: Nontender without deformity or crepitance. No flank tenderness. NEUROLOGICAL: Alert and oriented to place, time and person. Sensation and motor function intact bilaterally. No facial droops, dysphasia. PSYCHIATRIC: Good judgement and reason, without hallucinations, abnormal affect or abnormal behaviors during the examination. Patient is not suicidal. Initial Vital Signs Initial Vital Signs: Vital Signs Temperature 97.4 F L 03/31/19 12:57 Pulse Rate 108 H 03/31/19 12:57 Respiratory Rate 18 03/31/19 12:57 Blood Pressure 136/93 H 03/31/19 12:57 Pulse Oximetry 97 03/31/19 12:57 <Delmer Palmer MD - Last Filed: 04/03/19 20:55> Initial Vital Signs Initial Vital Signs: Vital Signs Temperature 97.4 F L 03/31/19 12:57 Pulse Rate 108 H 03/31/19 12:57 Respiratory Rate 18 03/31/19 12:57 Blood Pressure 136/93 H 03/31/19 12:57 Pulse Oximetry 97 03/31/19 12:57 Scores <Kian AmeCARMELO Davila - Last Filed: 03/31/19 19:08> GCS [place] coma scale eye opening: Spontaneous [place] coma scale verbal response: Orientated Shy coma scale motor response: Obey commands [place] coma scale total score: 15 NIH Stroke Scale Level of Conciousness: Alert, keenly responsive Ask month/age: Answers both questions correctly. Open/close eyes, close hand: Performs both tasks correctly Best gaze horizontal: Normal Visual aldana: No visual loss Facial palsy: Normal symetrical movement Left arm drift: No drift for full 10 sec Right arm drift: No drift for full 10 sec Left leg drift: No drift for full 10 sec Right leg drift: No drift for full 10 sec Limb ataxia: Absent Sensory on face/arms/legs: Normal, no sensory loss Best language: No aphasia, normal Dysarthria: Normal Extinction or inattention: No abnormality Total NIH Stroke scale score: 0 PERC Score Age greater than or equal to 50 years: No Heart rate greater than or equal to 100 bpm: Yes Room Air O2 Sat less than 95%: No Unilateral leg swelling: No Recent trauma or surgery: No Hemoptysis: No Prior PE or DVT: No Hormone Use: No Total PERC Score: 1 Course <Kian CARMELO Guzmán - Last Filed: 03/31/19 19:08> Course Course Narrative: 1700-Spouse of the patient informed that patient is confused. Patient was unable to remember her name, location, and their relation. NIHSS score 0 when the patient assessed by myself. CT head without contrast has been ordered added. Orders Ordered: Discontinued Medications Cephalexin HCl (Keflex) 500 mg PO NOW ONE Stop: 03/31/19 16:42 Last Admin: 03/31/19 17:25 Dose: 500 mg Documented by: DUC Vital Signs Vital signs: Vital Signs - 8 hr 03/31/19 12:57 03/31/19 13:44 03/31/19 16:39 Temperature 97.4 F L Pulse Rate 108 H 90 119 H Respiratory Rate 18 20 14 Blood Pressure 136/93 H Blood Pressure [Left Arm] 142/83 H 147/79 H Pulse Oximetry 97 100 97 03/31/19 17:00 03/31/19 17:47 Temperature Pulse Rate 113 H 91 H Respiratory Rate 17 18 Blood Pressure Blood Pressure [Left Arm] 138/80 114/70 Pulse Oximetry 97 97 <Delmer Palmer MD - Last Filed: 04/03/19 20:55> Orders Ordered: Discontinued Medications Cephalexin HCl (Keflex) 500 mg PO NOW ONE Stop: 03/31/19 16:42 Last Admin: 03/31/19 17:25 Dose: 500 mg Documented by: DUC Vital Signs Vital signs: Vital Signs - 8 hr 03/31/19 12:57 03/31/19 13:44 03/31/19 16:39 Temperature 97.4 F L Pulse Rate 108 H 90 119 H Respiratory Rate 18 20 14 Blood Pressure 136/93 H Blood Pressure [Left Arm] 142/83 H 147/79 H Pulse Oximetry 97 100 97 03/31/19 17:00 03/31/19 17:47 Temperature Pulse Rate 113 H 91 H Respiratory Rate 17 18 Blood Pressure Blood Pressure [Left Arm] 138/80 114/70 Pulse Oximetry 97 97 MDM - Extremity (Nontraumatic) <DORIAN TorrezP - Last Filed: 03/31/19 19:08> Differential Diagnosis Differential diagnosis: Likely cellulitis, lower extremity edema, deep vein thrombosis of lower extremity and other (acute kidney injury) Medical Records Attestation: I reviewed the patient's medical records. Lab Data Attestation: I reviewed the patient's lab results. Result diagrams: 03/31/19 13:43 03/31/19 13:43 Labs: Lab Results 03/31/19 03/31/19 03/31/19 Range/Units 13:43 13:43 13:43 WBC 8.1 (4.5-11.0) X10^3/uL RBC 4.45 (4.0-5.2) X10^6/uL Hgb 14.2 (12.0-16.0) g/dL Hct 40.5 (36-46) % MCV 91.0 (80-100) fL MCH 31.8 (26-34) PG MCHC 35.0 (30-36) % RDW 13.2 (11.6-14.8) % Plt Count 330 (150-400) X10^3/uL Neut % (Auto) 70.5 (50-75) % Lymph % (Auto) 22.3 L (25-40) % [place] % (Auto) 6.3 (3-14) % Eos % (Auto) 0.6 L (2-4) % Baso % (Auto) 0.3 (0-2) % Neut # (Auto) 5700 (9855-8998) /uL Lymph # (Auto) 1800 (2869-8919) /uL [place] # (Auto) 500 (0-900) /uL Eos # (Auto) 0 (0-450) /uL Baso # (Auto) 0 (0-100) /uL D-Dimer (<230) ng/mL Sodium 137 (137-145) mmol/L Potassium 3.6 (3.4-5.1) mmol/L Chloride 98 (98-107) mmol/L Carbon Dioxide 29 (22-32) mmol/L BUN 11 (7-17) mg/dL Creatinine 0.70 (0.52-1.04) mg/dL Estimated GFR > 60.0 (>60) mL/min BUN/Creatinine Ratio 15.7 (6-22) Glucose 131 H (70-100) mg/dL Lactate 1.6 (0.7-2.1) mmol/L Calcium 10.3 H (8.4-10.2) mg/dL Total Bilirubin 0.5 (0.2-1.3) mg/dL AST 43 H (14-36) IU/L ALT 44 H (<35) IU/L Alkaline Phosphatase 56 (38-126) U/L Total Creatine Kinase (30-135) U/L CK-MB (CK-2) CK-MB (CK-2) Rel Index Troponin I (0.01-0.034) ng/mL B-Natriuretic Peptide < 100 (<100) Total Protein 9.0 H (6.3-8.2) g/dL Albumin 5.0 (3.5-5.0) g/dL Globulin 4.0 (1.7-4.1) g/dL Albumin/Globulin Ratio 1.3 (1.0-2.8) 03/31/19 03/31/19 Range/Units 13:43 13:43 WBC (4.5-11.0) X10^3/uL RBC (4.0-5.2) X10^6/uL Hgb (12.0-16.0) g/dL Hct (36-46) % MCV (80-100) fL MCH (26-34) PG MCHC (30-36) % RDW (11.6-14.8) % Plt Count (150-400) X10^3/uL Neut % (Auto) (50-75) % Lymph % (Auto) (25-40) % [place] % (Auto) (3-14) % Eos % (Auto) (2-4) % Baso % (Auto) (0-2) % Neut # (Auto) (0786-3476) /uL Lymph # (Auto) (9288-9578) /uL [place] # (Auto) (0-900) /uL Eos # (Auto) (0-450) /uL Baso # (Auto) (0-100) /uL D-Dimer 260 H (<230) ng/mL Sodium (137-145) mmol/L Potassium (3.4-5.1) mmol/L Chloride (98-107) mmol/L Carbon Dioxide (22-32) mmol/L BUN (7-17) mg/dL Creatinine (0.52-1.04) mg/dL Estimated GFR (>60) mL/min BUN/Creatinine Ratio (6-22) Glucose (70-100) mg/dL Lactate (0.7-2.1) mmol/L Calcium (8.4-10.2) mg/dL Total Bilirubin (0.2-1.3) mg/dL AST (14-36) IU/L ALT (<35) IU/L Alkaline Phosphatase (38-126) U/L Total Creatine Kinase 88 (30-135) U/L CK-MB (CK-2) TNP CK-MB (CK-2) Rel Index TNP Troponin I < 0.012 (0.01-0.034) ng/mL B-Natriuretic Peptide (<100) Total Protein (6.3-8.2) g/dL Albumin (3.5-5.0) g/dL Globulin (1.7-4.1) g/dL Albumin/Globulin Ratio (1.0-2.8) Point of Care Testing Test Results Negative Urine Dip Bedside Urine Glucose Negative Bedside Urine Bilirubin - Negative Bedside Urine Ketone + 15 Urine Specific [place] 1.025 Bedside Urine Occult Blood - Negative Bedside Urine pH 6.0 Bedside Urine Protein +/- 15 Bedside Urine Urobilinogen - Negative Bedside Urine Nitrite + Positive Bedside Urine Leukocytes + 70 Esterase Imaging Data Chest x-ray: Radiologist's Impression: [address] [address] XRay Report Signed Patient: Maritza Phillips [facility]#: [id number] : 1980Acct:[id number] Age/Sex: 39 / FDate of Service: 03/31/19 Loc: ED Accession Number: [id number] Procedure: XR chest 2V Ordering Provider: Delmer Palmer MD PROCEDURE: XR CHEST 2V INDICATIONS: shortness of breath TECHNIQUE: 2 views of the chest were acquired. COMPARISON: [facility], , XR CHEST 1V, 02/15/2019, 8:48. FINDINGS: Surgical changes and devices: None. Lungs and pleura: Lungs are clear. No pleural effusions or pneumothorax. Mediastinum: Mediastinal contours are normal. Heart size is normal. Bones and chest wall: No suspicious bony abnormalities. Age-appropriate bony degenerative changes are seen. Soft tissues appear unremarkable. IMPRESSION: No acute cardiopulmonary process is seen. Dictated by: Costa Lopez M.D. on 03/31/2019 at 13:15 Approved by: Costa Lopez M.D. on 03/31/2019 at 13:15 CT scan - head: Radiologist's Impression: [facility] CARMELO Torrez Find Patient Imaging - Maritza Phillips 39 F 1980 ACTIVITY DATE EXAM STATUS AUTHOR 03/31/19 17:04 Signed Alyssia Powell 03/31/19 13:11 [place] [address] CT Scan Report Signed Patient: Maritza Phillips [facility]#: [id number] : 1980Acct:[id number] Age/Sex: 39 / FDate of Service: 03/31/19 Loc: ED Accession Number: [id number] Procedure: CT head/brain wo con Ordering Provider: Kian Guzmán PROCEDURE: CT HEAD/BRAIN WO CON INDICATIONS: confusion TECHNIQUE: Noncontrast 4.5 mm thick angled axial sections acquired from the foramen magnum to the vertex, with coronal and sagittal reformats. For radiation dose reduction, the following was used: automated exposure control, adjustment of mA and/or kV according to patient size. COMPARISON: None. FINDINGS: Image quality: Excellent. CSF spaces: Basal cisterns are patent. No extra-axial fluid collections. Ventricles are normal in size and shape. Brain: No midline shift. No intracranial masses or hemorrhage. [place]-white matter interface is normal. Skull and face: Calvarium and visualized facial bones are intact, without suspicious lesions. Sinuses: Visualized sinuses and mastoids are clear. IMPRESSION: No acute intracranial disease process. Dictated by: Alyssia Powell MD, PhD on 03/31/2019 at 17:40 Approved by: Alyssia Powell MD, PhD on 03/31/2019 at 17:41 ECG Data Attestation EKG: I personally reviewed and interpreted this ECG as follows: Interpretation: SR rate at 86. Normal Morning View No ST elevation or depression No changes from the previous EKG MDM Narrative Medical decision making narrative: This is a 39 year female who presents to ED with bilateral leg swelling which changed in character and decreased urine output since this morning. Patient reports she used to have dependent pitting edema to her lower extremity which now feels softer. She had used once for urination since this morning which does not look like concentrated. Patient also mentions she had lost unintentional 30 lb of weight loss last 3-4 months. Patient was seen by PCP yesterday and has follow-up appointment with cardiology for recent syncopal episode and intermittent chest discomfort. EKG today was normal sinus rhythm. CBC and chemistry were unremarkable with mild elevation in liver function tests of AST and ALT of 43/44. Albumin and total protein was unremarkable. Troponin and cardiac enzymes were negative. BNP was negative. D-dimer were 260 age appropriate. Patient denies breathing difficulty chest pain, bilateral leg with redness, warmth to be consider cellulitis. Ultrasound for DVT was not done since normal D-dimer for her age with her symtoms were in bilateral legs. Patient states she had UTI in the past and kidney infection. Urine was negative. UA showed positive for urine nitrite and leuks and pending urine culture. Prior medicating patient with the Keflex, patient's spouse came out nursing station to report patient is confused which lasted briefly. Patient's NIHSS score was 0 and oriented to x3 when she was assessed by myself. Head CT was ordered with negative for acute findings. Patient was able to tolerate fluids without nausea or vomiting. Patient was able to void without difficulty in ED after oral hydration and post void bladder scan was negative. The patient did have vasovagal symptoms while starting IV due to severe pain in her hand and became diaphoretic and pale with heart rate decreased to 60s temporarily which she recovered her symptoms and heart rate to 90s. Findings were discussed with the patient and patient advised to follow-up with private branch exchange service adviser for further testing with echocardiogram, stress test, Holter monitor as she has scheduled and follow up with her primary care physician in 2- 3 days. Return precautions were discussed with the patient and discharged to home with Keflex 500 mg for 7 day course b.i.d. patient verbalized understanding and agrees with the treatment plan. <Delmer Palmer MD - Last Filed: 04/03/19 20:55> Lab Data Labs: Lab Results 03/31/19 03/31/19 03/31/19 Range/Units 13:43 13:43 13:43 WBC 8.1 (4.5-11.0) X10^3/uL RBC 4.45 (4.0-5.2) X10^6/uL Hgb 14.2 (12.0-16.0) g/dL Hct 40.5 (36-46) % MCV 91.0 (80-100) fL MCH 31.8 (26-34) PG MCHC 35.0 (30-36) % RDW 13.2 (11.6-14.8) % Plt Count 330 (150-400) X10^3/uL Neut % (Auto) 70.5 (50-75) % Lymph % (Auto) 22.3 L (25-40) % [place] % (Auto) 6.3 (3-14) % Eos % (Auto) 0.6 L (2-4) % Baso % (Auto) 0.3 (0-2) % Neut # (Auto) 5700 (3793-3787) /uL Lymph # (Auto) 1800 (2552-6562) /uL [place] # (Auto) 500 (0-900) /uL Eos # (Auto) 0 (0-450) /uL Baso # (Auto) 0 (0-100) /uL D-Dimer (<230) ng/mL Sodium 137 (137-145) mmol/L Potassium 3.6 (3.4-5.1) mmol/L Chloride 98 (98-107) mmol/L Carbon Dioxide 29 (22-32) mmol/L BUN 11 (7-17) mg/dL Creatinine 0.70 (0.52-1.04) mg/dL Estimated GFR > 60.0 (>60) mL/min BUN/Creatinine Ratio 15.7 (6-22) Glucose 131 H (70-100) mg/dL Lactate 1.6 (0.7-2.1) mmol/L Calcium 10.3 H (8.4-10.2) mg/dL Total Bilirubin 0.5 (0.2-1.3) mg/dL AST 43 H (14-36) IU/L ALT 44 H (<35) IU/L Alkaline Phosphatase 56 (38-126) U/L Total Creatine Kinase (30-135) U/L CK-MB (CK-2) CK-MB (CK-2) Rel Index Troponin I (0.01-0.034) ng/mL B-Natriuretic Peptide < 100 (<100) Total Protein 9.0 H (6.3-8.2) g/dL Albumin 5.0 (3.5-5.0) g/dL Globulin 4.0 (1.7-4.1) g/dL Albumin/Globulin Ratio 1.3 (1.0-2.8) 03/31/19 03/31/19 Range/Units 13:43 13:43 WBC (4.5-11.0) X10^3/uL RBC (4.0-5.2) X10^6/uL Hgb (12.0-16.0) g/dL Hct (36-46) % MCV (80-100) fL MCH (26-34) PG MCHC (30-36) % RDW (11.6-14.8) % Plt Count (150-400) X10^3/uL Neut % (Auto) (50-75) % Lymph % (Auto) (25-40) % [place] % (Auto) (3-14) % Eos % (Auto) (2-4) % Baso % (Auto) (0-2) % Neut # (Auto) (3185-2514) /uL Lymph # (Auto) (4305-8106) /uL [place] # (Auto) (0-900) /uL Eos # (Auto) (0-450) /uL Baso # (Auto) (0-100) /uL D-Dimer 260 H (<230) ng/mL Sodium (137-145) mmol/L Potassium (3.4-5.1) mmol/L Chloride (98-107) mmol/L Carbon Dioxide (22-32) mmol/L BUN (7-17) mg/dL Creatinine (0.52-1.04) mg/dL Estimated GFR (>60) mL/min BUN/Creatinine Ratio (6-22) Glucose (70-100) mg/dL Lactate (0.7-2.1) mmol/L Calcium (8.4-10.2) mg/dL Total Bilirubin (0.2-1.3) mg/dL AST (14-36) IU/L ALT (<35) IU/L Alkaline Phosphatase (38-126) U/L Total Creatine Kinase 88 (30-135) U/L CK-MB (CK-2) TNP CK-MB (CK-2) Rel Index TNP Troponin I < 0.012 (0.01-0.034) ng/mL B-Natriuretic Peptide (<100) Total Protein (6.3-8.2) g/dL Albumin (3.5-5.0) g/dL Globulin (1.7-4.1) g/dL Albumin/Globulin Ratio (1.0-2.8) Point of Care Testing Test Results Negative Urine Dip Bedside Urine Glucose Negative Bedside Urine Bilirubin - Negative Bedside Urine Ketone + 15 Urine Specific [place] 1.025 Bedside Urine Occult Blood - Negative Bedside Urine pH 6.0 Bedside Urine Protein +/- 15 Bedside Urine Urobilinogen - Negative Bedside Urine Nitrite + Positive Bedside Urine Leukocytes + 70 Esterase Discharge Plan Departure Patient Disposition: Home Clinical Impression: Bilateral lower extremity edema UTI (urinary tract infection) Qualifiers: Urinary tract infection type: site unspecified Hematuria presence: without hematuria Qualified Code(s): N39.0 - Urinary tract infection, site not specified Discharge Date/Time: 03/31/19 18:09 Instructions: DI for Urinary Tract Infection (UTI), DI for Peripheral Edema -- Bilateral Activity Restrictions/Additional Instructions: You have been diagnosed with [bilateral some nonpitting edema, UTI. CBC and chemistries were unremarkable. Mild elevation in liver function test as AST 43 and ALT of 44. D-dimer was very mildly elevated (260) but normal for your age. BNP was normal. Chest x-ray was normal. Normal cardiac enzymes with sinus r hythm in EKG. Urine is pending for culture. Post void bladder scan did not show any urinary retention.]. What to do: *Take your medications as directed. Please continue to take Keflex twice a day for next 7 days for UTI. *Follow up with your primary care provider in 2-3 days, call for an appointment. Let them know you were seen in the ED and that we asked you to be seen in follow up. Please follow-up with private branch exchange service adviser as you have scheduled for intermittent chest pressure and syncopal episodes. *Return to ED if you have any new, worsening, or concerning symptoms, such as [chest pain, different type of chest pain, breathing difficulty, fainting like episodes, unable to tolerate fluids, or any acute concerns]. Prescriptions: New cephalexin [Keflex] 500 mg capsule 500 mg PO BID 7 Days Qty: 14 RF: 0 No Action ropinirole 1 mg tablet 1 mg PO TID RF: 0 tizanidine 4 mg tablet 4 mg PO QID RF: 0 lisinopril 10 mg tablet 10 mg PO QPM RF: 0 hydroxyzine HCl 25 mg tablet 25 mg PO QPM RF: 0 oxycodone-acetaminophen 7.5-325 mg tablet 1 tab PO Q6H PRN (Reason: pain) RF: 0 colchicine [Colcrys] 0.6 mg tablet 0.6 mg PO DAILY RF: 0 metformin 500 mg tablet extended release 24 hr 500 mg PO QPM RF: 0 duloxetine 60 mg capsule,delayed release(DR/EC) 60 mg PO DAILY RF: 0 pregabalin [Lyrica] 75 mg capsule 75 mg PO TID RF: 0 hydrochlorothiazide 12.5 mg tablet 12.5 mg PO QPM RF: 0 Nucynta ER 50 mg tablet extended release 12 hr 50 mg PO BID RF: 0 multivitamin Tablet 1 tab PO DAILY RF: 0 calcium carb-D3-mag ox-zinc ox 333 mg-133 unit -133 mg-5 mg Tablet 1 tab PO DAILY RF: 0 ondansetron 4 mg tablet,disintegrating 4 mg PO Q6-8H PRN (Reason: nausea and vomiting) Qty: 7 RF: 0 potassium chloride [Klor-Con 10] 10 mEq tablet extended release 10 meq PO BID RF: 0 loratadine 10 mg tablet 10 mg PO DAILY RF: 0 Referrals: [facility] [Outside]
[2019-03-31 14:26] LABS: B Type Natriuretic Peptide < 100 (<100)
[2019-03-31 14:38] LABS: Creatine Kinase 88 U/L (30-135)
[2019-03-31 14:49] LABS: Troponin I < 0.012 ng/mL (0.01-0.034)
[2019-03-31 15:21] LABS: D Dimer 260 ng/mL (<230)
[2019-03-31 16:39] VITALS: BP 147/79; PULSE 119; RESP 14; O2SAT 97
[2019-03-31 17:00] VITALS: BP 138/80; PULSE 113; RESP 17; O2SAT 97
--- NOTE | 2019-03-31 17:04 | DI.CT.S_ITS ---
PROCEDURE: CT HEAD/BRAIN WO CON INDICATIONS: confusion TECHNIQUE: Noncontrast 4.5 mm thick angled axial sections acquired from the foramen magnum to the vertex, with coronal and sagittal reformats. For radiation dose reduction, the following was used: automated exposure control, adjustment of mA and/or kV according to patient size. COMPARISON: None. FINDINGS: Image quality: Excellent. CSF spaces: Basal cisterns are patent. No extra-axial fluid collections. Ventricles are normal in size and shape. Brain: No midline shift. No intracranial masses or hemorrhage. Jimenez-white matter interface is normal. Skull and face: Calvarium and visualized facial bones are intact, without suspicious lesions. Sinuses: Visualized sinuses and mastoids are clear. IMPRESSION: No acute intracranial disease process. Dictated by: Alyssia Powell MD, PhD on 03/31/2019 at 17:40 Approved by: Alyssia Powell MD, PhD on 03/31/2019 at 17:41
[2019-03-31] MEDS: cephALEXin 250 MG CAPSULE 500 MG PO (17:25)
[2019-03-31 17:47] VITALS: BP 114/70; PULSE 91; RESP 18; O2SAT 97
--- NOTE | 2019-04-02 00:40 | PC.NURSE ---
[facility] ED is requesting patients records from this ED visit due to the reason that this patient is currently in their ED and they need the records in order to perform care.
== END 2019-03-31 18:09 | disposition home or self-care (01) ==
PROVIDERS: Emergency Medicine; Emergency Provider Nurse Practitioner Family
DX: R60.9 Edema, unspecified (principal); N39.0 Urinary tract infection, site not specified; R06.02 Shortness of breath; R41.0 Disorientation, unspecified
CPT/HCPCS: 36415; 51798; 70450; 71046; 80053; 81003; 81025; 82550; 83605; 83880; 84484; 85025; 85379; 93005; 93010; 99285

== ENCOUNTER 2019-04-06 00:59 | Emergency (ER) | payer OTHER, SELFPAY ==
[2019-04-06 01:05] VITALS: BP 168/75; PULSE 99; RESP 15; TEMP 37.3; O2SAT 97; BMI 53.1
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
[2019-04-06] MEDS: LORazepam 0.5 MG TABLET 1 MG PO (02:19)
[2019-04-06 03:39] LABS: Add Manual Diff / Slide Review NO; Basophils Absolute Auto 100 /uL (0-100); Basophils Percent Auto 0.7 % (0-2); Eosinophils Absolute Auto 100 /uL (0-450); Eosinophils Percent Auto 0.6 % (2-4); Hemoglobin 14.3 g/dL (12.0-16.0); Lymphocytes Absolute Auto 2000 /uL (1100-4500); Mean Corpuscular HGB Conc 34.7 % (30-36); Mean Corpuscular Hemoglobin 31.9 PG (26-34); Mean Corpuscular Volume 91.7 fL (80-100); Monocytes Absolute Auto 600 /uL (0-900); Monocytes Percent Auto 6.9 % (3-14); Neutrophils Absolute Auto 6400 /uL (1500-7000); Neutrophils Percent Auto 69.8 % (50-75); Platelet Count 334 X10^3/uL (150-400); Red Blood Cell Count 4.47 X10^6/uL (4.0-5.2); Red Cell Distribution Width 13.1 % (11.6-14.8); White Blood Cell Count 9.2 X10^3/uL (4.5-11.0)
[2019-04-06 03:49] LABS: BUN Creatinine Ratio 18.6 (6-22); Blood Urea Nitrogen 13 mg/dL (7-17); Calcium 9.9 mg/dL (8.4-10.2); Carbon Dioxide 28 mmol/L (22-32); Chloride 96 mmol/L (98-107); Estimated Glomerular Filt Rate > 60.0 mL/min (>60); Glucose 135 mg/dL (70-100); HEMOLYSIS < 15 (0-50); Potassium 3.3 mmol/L (3.4-5.1); Sodium 138 mmol/L (137-145)
[2019-04-06 03:54] LABS: Ethanol (ETOH) < 10 mg/dL
[2019-04-06 04:31] LABS: Ur Creatinine Normal (Normal); Ur Specific Gravity Normal (Normal); Urine pH Normal (Normal)
[2019-04-06 04:34] LABS: Urine Tetrahydrocannabinol Positive (Negative)
[2019-04-06 04:35] LABS: UR Morphine/Opiate cutoff 300 Negative (Negative); Urine Amphetamines Negative (Negative); Urine Barbiturates Negative (Negative); Urine Benzodiazepines Negative (Negative); Urine Cocaine Negative (Negative); Urine MDMA Negative (Negative); Urine Methadone Negative (Negative); Urine Methamphetamines Negative (Negative); Urine Oxycodone Positive (Negative); Urine Phencyclidine Negative (Negative); Urine Tricyclic Antidepressant Negative (Negative)
[2019-04-06 05:15] VITALS: BP 153/70; PULSE 90; RESP 22; O2SAT 97
[2019-04-06] MEDS: haloperidoL 5 MG TABLET 10 MG PO (05:16)
--- NOTE | 2019-04-06 07:43 | PC.NURSE ---
pt wanting to speak with MANAGER OF HOSPITAL to get a new psychiatrist. at this time denies SI/HI
[2019-04-06 07:45] VITALS: BP 133/58; PULSE 85; RESP 16; O2SAT 95
--- NOTE | 2019-04-06 07:45 | PC.NURSE ---
generalized body ache.
--- NOTE | 2019-04-06 08:56 | PC.NURSE ---
with pain contract, she doesnt want to speak with GARMENT FOLDER at this time,will return if needed, she states, she has an appt with her primary at 1300 today. explained, for pending dc instruction from md, verbal understanding plan of care.
--- NOTE | 2019-04-06 10:43 | CM.SWNOTE ---
PHOTOGRAPHIC PROCESSOR Consult Request Received PHOTOGRAPHIC PROCESSOR consult to assess needs of this 39 yo who arrives to the ED complaining of panic attack and requesting to speak w/ PHOTOGRAPHIC PROCESSOR to get a new psychiatrist per RN Serenity. This PHOTOGRAPHIC PROCESSOR unable to accommodate immediately and was notified by RN that Maritza decided to leave ER stating she would follow up w/her PCP this afternoon about referral to a new psychiatrist. BASSEM Calderon
== END 2019-04-06 09:00 | disposition home or self-care (01) ==
PROVIDERS: Emergency Medicine; Emergency Provider Emergency Medicine
DX: F41.9 Anxiety disorder, unspecified (principal)
CPT/HCPCS: 36415; 80048; 80305; 80320; 81003; 81025; 84443; 85025; 99283; 99284

== ENCOUNTER 2019-10-25 09:29 | Emergency (ER) | payer OTHER, SELFPAY ==
[2019-10-25 09:30] VITALS: BP 128/77; PULSE 68; RESP 16; TEMP 37; O2SAT 96; BMI 51.7
[2019-10-25 10:00] LABS: Bacteria Urine None Seen; RBC Urine None Seen (0-5/HPF)
[2019-10-25 10:03] LABS: Culture Indicated Urine Cult Not Indicated; Squamous Epithelial Cell Urine 5-10 /HPF (0-5/HPF); WBC Urine 1-5/HPF (0-5/HPF)
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
[2019-10-25] MEDS: metroNIDAZOLE 500 MG TABLET PO (10:30)
== END 2019-10-25 10:25 | disposition home or self-care (01) ==
PROVIDERS: Emergency Provider Emergency Medicine; PCP Family Medicine
DX: A59.9 Trichomoniasis, unspecified (principal)
CPT/HCPCS: 81003; 81015; 81025; 99283

== ENCOUNTER 2019-12-05 10:23 | Emergency (ER) | payer OTHER, SELFPAY ==
[2019-12-05] VITALS (11 sets, daily range): BP systolic 100–136; BP diastolic 53–72; PULSE 79–93; RESP 16–27; TEMP 36.6; O2SAT 92–97; BMI 44.3
--- NOTE | 2019-12-05 10:33 | ED.DIZZY ---
HPI - Dizziness General Chief Complaint: Syncope Stated Complaint: passed out and hit head injured neck,today Time Seen by Provider: 12/05/19 10:31 Source: patient Mode of arrival: Ambulatory Limitations: no limitations History of Present Illness HPI Narrative: The patient had a syncopal episode about a 30 this morning. She is diabetic. She is on blood pressure medications. She had gone to the bathroom, she stood up suddenly. She passed out and fell forward. She hit her forehead on the wall. She awoke on the floor. She is here now with mild forehead pain. There is no obvious skin breaks or visual injury. She has no visual changes, speech changes or confusion. She denies neck pain. She has no torso or extremity injuries. She denies dyspnea. She is not having palpitations or cardiac issues. She has not checked her glucose, she is on metformin only. She thinks her blood pressure medication may be involved. She has anxiety issues. She has had prior syncope, generally associated with anxiety. She thinks this may be related to use of blood pressure medication and she stood too fast. She has no chest pain or dyspnea. She has no symptoms now other than slight dizziness. She denies recent illness. Related Data Home Medications Medication Instructions Recorded Confirmed calcium carb-D3-mag ox-zinc ox 1 tab PO DAILY 01/06/19 04/06/19 colchicine [Colcrys] 0.6 mg PO DAILY 01/06/19 04/06/19 duloxetine 60 mg PO DAILY 01/06/19 04/06/19 hydrochlorothiazide 12.5 mg PO QPM 01/06/19 04/06/19 hydroxyzine HCl 25 mg PO QPM 01/06/19 04/06/19 lisinopril 10 mg PO QPM 01/06/19 04/06/19 metformin 500 mg PO QPM 01/06/19 04/06/19 multivitamin 1 tab PO DAILY 01/06/19 04/06/19 oxycodone-acetaminophen 1 tab PO Q6H PRN 01/06/19 04/06/19 pregabalin [Lyrica] 75 mg PO TID 01/06/19 04/06/19 ropinirole 1 mg PO TID 01/06/19 04/06/19 tapentadol [Nucynta ER] 50 mg PO BID 01/06/19 04/06/19 tizanidine 4 mg PO QID 01/06/19 04/06/19 loratadine 10 mg PO DAILY 03/31/19 04/06/19 potassium chloride [Klor-Con 10] 10 meq PO BID 03/31/19 03/31/19 Previous Rx's Medication Instructions Recorded ondansetron 4 mg PO Q6-8H PRN #7 tab 01/06/19 metronidazole [Flagyl] 500 mg PO BID #14 tab 10/25/19 Allergies Allergy/AdvReac Type Severity Reaction Status Date / Time bacitracin Allergy Intermediate INFLAMES Verified 12/05/19 10:34 [From NEOSPORIN WOUND ([id number])] neomycin Allergy Intermediate INFLAMES Verified 12/05/19 10:34 [From NEOSPORIN WOUND ([id number])] polymyxin B Allergy Intermediate INFLAMES Verified 12/05/19 10:34 [From NEOSPORIN WOUND ([id number])] latex [LATEX] Allergy Mild RASH Verified 12/05/19 10:34 Review of Systems Review of Systems ROS Unobtainable: All systems reviewed & are unremarkable except as noted in HPI and below Constitutional Constitutional: Denies chills, Denies fever(s) and Reports weakness Eyes Eyes: Denies change in vision ENT Ears, Nose, Mouth, and Throat: Reports dizziness, Denies neck pain, Denies tinnitus and Denies sinus pressure Cardiovascular Cardiovascular: Denies chest pain, Denies irregular heart rhythm, Denies lightheadedness, Denies palpitations and Denies dyspnea Respiratory Respiratory: Denies cough, Denies dyspnea and Denies wheezing Gastrointestinal Gastrointestinal: Denies abdominal pain, Denies change in bowel habits, Denies nausea and Denies vomiting Musculoskeletal Musculoskeletal: Denies back pain and Denies neck pain Integumentary/Breasts Skin/Breast: Denies pruritus, Denies erythema, Denies rash and Denies wounds Neurologic Neurologic: Reports dizziness and Reports weakness Endocrine Endocrine: Denies palpitations Allergic/Immunologic Allergic/Immunologic: Denies wheezing Patient History Medical History (Updated 12/05/19 @ 16:22 by Jose Thorne MD) Anxiety (Acute) Chronic back pain (Acute) Depression (Acute) Diabetes (Acute) Hypertension (Acute) Insomnia (Acute) Pyelonephritis (Acute) Social History marital status: lives independently: Yes Smoking Status: Former smoker Smoking Status: Former smoker alcohol intake frequency: holidays/special occasions only Substance Use Type: does not use and marijuana Exam Initial Vital Signs Initial Vital Signs: Vital Signs Temperature 97.9 F 12/05/19 10:30 Pulse Rate 88 12/05/19 10:30 Respiratory Rate 16 12/05/19 10:30 Blood Pressure 136/72 12/05/19 10:30 Pulse Oximetry 97 12/05/19 10:30 Const General: cooperative and well developed Nutritional Appearance: well nourished HENGA Mouth: oral mucosae normal Eyes General: appearance normal, both eyes and all related structures Eyelids: eyelids normal Conjunctivae: conjunctivae normal Sclera: sclerae normal Pupils: PERRL EOM: EOM intact bilaterally Neck Neck: normal visual inspection, trachea midline, No lymphadenopathy and No JVD Lymphatic: No lymphedema Resp Effort & Inspection: normal respiratory effort and able to speak in complete sentences Auscultation: clear to auscultation bilaterally, no rales, no rhonchi and no wheezes Cardio Rate: regular rate Rhythm: regular rhythm Heart Sounds: no click, no gallops, no murmurs and no rubs Pulses: normal peripheral pulses GI Inspection: non-distended Palpation: soft, no hepatosplenomegaly, No guarding, No pulsatile mass and No tender Auscultation: normal bowel sounds Back/Spine/Pelvis Back: No CVA tenderness Cervical Spine: cervical ROM normal and No pain with cervical ROM Thoracic/Lumbar Spine: thoracic and lumbar spine normal to inspection Skin General: no rashes or lesions noted and No petechiae Neuro General: patient alert, patient oriented x3, gait normal and no focal motor deficits Speech: speech normal Extrem General: normal to inspection, no pedal edema and no calf tenderness Course Course Course Narrative: The patient has been hemodynamically stable since arrival. Cardiac monitoring, orthostatic vitals, head CT, and lab data are benign. There is no clear etiology. Her concern about orthostatic hypotension related to her meds is possible. I am encouraging follow-up with her doctor. Orders Ordered: ED Orders 12/05/19 10:30 EKG-12 Lead Stat 12/05/19 10:45 CT head/brain wo con Stat 12/05/19 11:18 Complete Blood Count AUTO DIFF Stat Comprehensive Metabolic Panel Stat Troponin & CK Cardiac Panel Stat 12/05/19 13:08 Urine Culture Stat Urine Microscopic Stat Discontinued Medications Sodium Chloride (Normal Saline 0.9%) 1,000 mls @ 150 mls/hr IV CONT NOREEN Last Infusion: 12/05/19 12:56 Dose: 0 mls/hr Documented by: Admin: 12/05/19 11:33 Dose: 999 mls/hr Documented by: CHARL[place]TE Vital Signs Vital signs: Vital Signs - 8 hr 12/05/19 10:30 12/05/19 10:40 12/05/19 11:03 Temperature 97.9 F Pulse Rate 88 81 Pulse Rate [Orthostatic Lying] Pulse Rate [Orthostatic Sitting] Pulse Rate [Orthostatic Standing] Respiratory Rate 16 Blood Pressure 136/72 Blood Pressure [Orthostatic Lying] Blood Pressure [Orthostatic Sitting] Blood Pressure [Orthostatic Standing] Pulse Oximetry 97 94 92 12/05/19 11:20 12/05/19 11:30 12/05/19 12:00 Temperature Pulse Rate 90 89 93 H Pulse Rate [Orthostatic Lying] Pulse Rate [Orthostatic Sitting] Pulse Rate [Orthostatic Standing] Respiratory Rate 18 19 27 H Blood Pressure 118/60 100/54 L 103/66 Blood Pressure [Orthostatic Lying] Blood Pressure [Orthostatic Sitting] Blood Pressure [Orthostatic Standing] Pulse Oximetry 96 95 96 12/05/19 12:30 12/05/19 12:49 12/05/19 12:50 Temperature Pulse Rate 81 88 80 Pulse Rate [Orthostatic Lying] Pulse Rate [Orthostatic Sitting] Pulse Rate [Orthostatic Standing] Respiratory Rate 16 20 27 H Blood Pressure 107/53 L 104/53 L 103/53 L Blood Pressure [Orthostatic Lying] Blood Pressure [Orthostatic Sitting] Blood Pressure [Orthostatic Standing] Pulse Oximetry 96 96 97 12/05/19 12:51 12/05/19 12:54 Temperature Pulse Rate 87 Pulse Rate [Orthostatic Lying] 79 Pulse Rate [Orthostatic Sitting] 79 Pulse Rate [Orthostatic Standing] 83 Respiratory Rate 27 H Blood Pressure 103/59 L Blood Pressure [Orthostatic Lying] 104/53 L Blood Pressure [Orthostatic Sitting] 103/53 L Blood Pressure [Orthostatic Standing] 103/59 L Pulse Oximetry 96 MDM - Dizziness Lab Data Result diagrams: 12/05/19 11:18 12/05/19 11:18 Labs: Lab Results 12/05/19 12/05/19 12/05/19 Range/Units 11:18 11:18 13:08 WBC 7.3 (4.5-11.0) X10^3/uL RBC 4.05 (4.0-5.2) X10^6/uL Hgb 12.5 (12.0-16.0) g/dL Hct 36.7 (36-46) % MCV 90.7 (80-100) fL MCH 31.0 (26-34) PG MCHC 34.1 (30-36) % RDW 12.9 (11.6-14.8) % Plt Count 279 (150-400) X10^3/uL Neut % (Auto) 74.8 (50-75) % Lymph % (Auto) 17.1 L (25-40) % [place] % (Auto) 6.6 (3-14) % Eos % (Auto) 1.0 L (2-4) % Baso % (Auto) 0.5 (0-2) % Neut # (Auto) 5400 (0999-8860) /uL Lymph # (Auto) 1200 (5529-6964) /uL [place] # (Auto) 500 (0-900) /uL Eos # (Auto) 100 (0-450) /uL Baso # (Auto) 0 (0-100) /uL Sodium 136 L (137-145) mmol/L Potassium 4.1 (3.4-5.1) mmol/L Chloride 99 (98-107) mmol/L Carbon Dioxide 29 (22-32) mmol/L BUN 16 (7-17) mg/dL Creatinine 0.67 (0.52-1.04) mg/dL Estimated GFR > 60.0 (>60) mL/min BUN/Creatinine Ratio 23.9 H (6-22) Glucose 158 H (70-100) mg/dL Calcium 9.1 (8.4-10.2) mg/dL Total Bilirubin 0.4 (0.2-1.3) mg/dL AST 33 (14-36) IU/L ALT 22 (<35) IU/L Alkaline Phosphatase 48 (38-126) U/L Total Creatine Kinase 391 H (30-135) U/L CK-MB (CK-2) 0.89 (<2.37) ng/mL CK-MB (CK-2) Rel Index 0.2 L (1.5-5.0) % Troponin I < 0.012 (0.01-0.034) ng/mL Total Protein 7.3 (6.3-8.2) g/dL Albumin 4.3 (3.5-5.0) g/dL Globulin 3.0 (1.7-4.1) g/dL Albumin/Globulin Ratio 1.4 (1.0-2.8) Urine RBC 1-5/hpf (0-5/HPF) Urine WBC 1-5/hpf (0-5/HPF) Ur Squamous Epith Cells 1-5 /hpf (0-5/HPF) Urine Bacteria Occasional (0-1) (None) Ur Culture Indicated? Specimen cultured Micro UA Comment Ailyn esterase + Point of Care Testing Glucose POC 126 Urine Dip Bedside Urine Glucose Negative Bedside Urine Bilirubin + 1 Bedside Urine Ketone - Negative Urine Specific [place] 1.015 Bedside Urine Occult Blood +++ Bedside Urine pH 6.5 Bedside Urine Protein - Negative Bedside Urine Urobilinogen - Negative Bedside Urine Nitrite - Negative Bedside Urine Leukocytes + [address] scan - head: Radiologist's Impression: No acute findings. ECG Data Attestation: I personally reviewed and interpreted this ECG as follows: (Sinus tachycardia rate 105 beats per minute. Motion artifact. No acute ST T wave changes.) Discharge Plan Departure Patient Disposition: Home Clinical Impression: Syncope and collapse, Vasovagal syncope Discharge Date/Time: 12/05/19 14:28 Activity Restrictions/Additional Instructions: We have done extensive evaluation, looking for cardiac reasons, neurologic recent, suggestion of infection, and lab abnormalities. Your test all are okay. Your suggestion that this may be related your blood pressure medications and used that up too quickly is possible. Your blood pressure testing here was normal. Continue current medications. Follow-up with your doctor. Return to the ER as necessary. Prescriptions: No Action metronidazole [Flagyl] 500 mg tablet 500 mg PO BID Qty: 14 RF: 0 ropinirole 1 mg tablet 1 mg PO TID RF: 0 tizanidine 4 mg tablet 4 mg PO QID RF: 0 lisinopril 10 mg tablet 10 mg PO QPM RF: 0 hydroxyzine HCl 25 mg tablet 25 mg PO QPM RF: 0 oxycodone-acetaminophen 7.5-325 mg tablet 1 tab PO Q6H PRN (Reason: pain) RF: 0 colchicine [Colcrys] 0.6 mg tablet 0.6 mg PO DAILY RF: 0 metformin 500 mg tablet extended release 24 hr 500 mg PO QPM RF: 0 duloxetine 60 mg capsule,delayed release(DR/EC) 60 mg PO DAILY RF: 0 pregabalin [Lyrica] 75 mg capsule 75 mg PO TID RF: 0 hydrochlorothiazide 12.5 mg tablet 12.5 mg PO QPM RF: 0 Nucynta ER 50 mg tablet extended release 12 hr 50 mg PO BID RF: 0 multivitamin Tablet 1 tab PO DAILY RF: 0 calcium carb-D3-mag ox-zinc ox 333 mg-133 unit -133 mg-5 mg Tablet 1 tab PO DAILY RF: 0 ondansetron 4 mg tablet,disintegrating 4 mg PO Q6-8H PRN (Reason: nausea and vomiting) Qty: 7 RF: 0 potassium chloride [Klor-Con 10] 10 mEq tablet extended release 10 meq PO BID RF: 0 loratadine 10 mg tablet 10 mg PO DAILY RF: 0 Referrals: Francisca Will DO [Primary Care Provider] -
--- NOTE | 2019-12-05 10:45 | DI.CT.S_ITS ---
PROCEDURE: CT HEAD/BRAIN WO CON INDICATIONS: syncope TECHNIQUE: Noncontrast 4.5 mm thick angled axial sections acquired from the foramen magnum to the vertex, with coronal and sagittal reformats. For radiation dose reduction, the following was used: automated exposure control, adjustment of mA and/or kV according to patient size. COMPARISON: [facility], CT, CT HEAD/BRAIN WO CON, 03/31/2019, 17:26. FINDINGS: Image quality: Excellent. CSF spaces: Basal cisterns are patent. No extra-axial fluid collections. Ventricles are normal in size and shape. Brain: No intracranial hemorrhage, mass, or mass effect. Jimenez-white matter interface appears preserved. Skull and face: Calvarium and visualized facial bones are intact, without suspicious lesions. Sinuses: Visualized sinuses and mastoids are clear. IMPRESSION: 1. No acute intracranial abnormality. Dictated by: Chris Bradford M.D. on 12/05/2019 at 11:14 Approved by: Chris Bradford M.D. on 12/05/2019 at 11:14
[2019-12-05 11:29] LABS: Add Manual Diff / Slide Review NO; Basophils Absolute Auto 0 /uL (0-100); Basophils Percent Auto 0.5 % (0-2); Eosinophils Absolute Auto 100 /uL (0-450); Hematocrit 36.7 % (36-46); Hemoglobin 12.5 g/dL (12.0-16.0); Lymphocytes Absolute Auto 1200 /uL (1100-4500); Lymphocytes Percent Auto 17.1 % (25-40); Mean Corpuscular HGB Conc 34.1 % (30-36); Mean Corpuscular Volume 90.7 fL (80-100); Monocytes Absolute Auto 500 /uL (0-900); Monocytes Percent Auto 6.6 % (3-14); Neutrophils Absolute Auto 5400 /uL (1500-7000); Neutrophils Percent Auto 74.8 % (50-75); Platelet Count 279 X10^3/uL (150-400); Red Blood Cell Count 4.05 X10^6/uL (4.0-5.2); Red Cell Distribution Width 12.9 % (11.6-14.8); White Blood Cell Count 7.3 X10^3/uL (4.5-11.0)
[2019-12-05] MEDS: SODIUM CHLORIDE 0.9% 1,000 ML 999 ML IV (11:33)
[2019-12-05 11:39] LABS: Alanine Aminotransferase 22 IU/L (<35); Albumin 4.3 g/dL (3.5-5.0); Albumin Globulin Ratio 1.4 (1.0-2.8); Alkaline Phosphatase 48 U/L (38-126); Aspartate Aminotransferase 33 IU/L (14-36); BUN Creatinine Ratio 23.9 (6-22); Bilirubin Total 0.4 mg/dL (0.2-1.3); Blood Urea Nitrogen 16 mg/dL (7-17); Calcium 9.1 mg/dL (8.4-10.2); Carbon Dioxide 29 mmol/L (22-32); Chloride 99 mmol/L (98-107); Creatine Kinase 391 U/L (30-135); Estimated Glomerular Filt Rate > 60.0 mL/min (>60); Glucose 158 mg/dL (70-100); HEMOLYSIS < 15 (0-50); Potassium 4.1 mmol/L (3.4-5.1); Sodium 136 mmol/L (137-145); Total Protein 7.3 g/dL (6.3-8.2)
[2019-12-05 11:51] LABS: Troponin I < 0.012 ng/mL (0.01-0.034)
[2019-12-05 11:54] LABS: CKMB % Relative Index 0.2 % (1.5-5.0); Creatine Kinase MB 0.89 ng/mL (<2.37)
[2019-12-05 13:41] LABS: Bacteria Urine Occasional (0-1); Culture Indicated Urine Specimen Cultured; RBC Urine 1-5/HPF (0-5/HPF); Squamous Epithelial Cell Urine 1-5 /HPF (0-5/HPF); Urine Comments LEU ESTERASE +; WBC Urine 1-5/HPF (0-5/HPF)
== END 2019-12-05 14:28 | disposition home or self-care (01) ==
PROVIDERS: Emergency Provider Emergency Medicine; PCP Family Medicine
DX: S09.90XA Unspecified injury of head, initial encounter (principal); R55 Syncope and collapse; W18.30XA Fall on same level, unspecified, initial encounter
CPT/HCPCS: 36415; 70450; 80053; 81003; 81015; 82550; 82553; 82962; 84484; 85025; 87077; 87086; 87147; 93005; 96360; 99284